=== PATIENT | female | born 1985 | race Caucasian/White ===

== ENCOUNTER → 2022-06-21 | Outpatient (CLI) | payer MEDICAID | LOC: LABNPT 17:01 | PROVIDERS: ATTEND Obstetrics & Gynecology | DX: O13.9 Gestational [pregnancy-induced] hypertension without significant proteinuria, unspecified trimester (principal); Z3A.00 Weeks of gestation of pregnancy not specified | CPT/HCPCS: 82570; 84156 ==

== ENCOUNTER 2022-06-29 12:46 | Outpatient (CLI) | payer MEDICAID ==
[~2022-06-29] VITALS: Ht 162.6 cm; Wt 79.2 kg
[2022-06-29] MEDS ORDERED: D5 LR IV SOLUTION 1,000 ML IV SCH (13:15)
[2022-06-29 13:21] LABS: CLARITY,URINE CLEAR; COLOR,URINE YELLOW; GLUCOSE, URINE (UA) NEGATIVE (NEGATIVE); KETONES,URINE 2+ (NEGATIVE); LEUKOCYTE ESTERASE ,URINE TRACE (NEGATIVE); NITRITE,URINE NEGATIVE (NEGATIVE); PROTEIN,URINE NEGATIVE (NEGATIVE)
[2022-06-29 13:27] VITALS: BP 138/70
[2022-06-29 13:33] LABS: AMORPHOUS SEDIMENT,UR FEW AMOR URATES /LPF; BACTERIA,URINE FEW /HPF; BILIRUBIN,URINE 2+ (NEGATIVE)
--- NOTE | 2022-06-30 08:44 | Physician Query-Final Dx ---
TANYA,06/30/22 0844: Clinic Account Progress/Dx Physician Query: Please give diagnosis Please include # weeks gestation Date of Service Jun 29, 2022 at 12:46 MAYURI RANDHAWA MD 06/30/22 1105: Clinic Account Progress/Dx DIAGNOSIS: Diagnosis 36 weeks gestation with false labor ,NovJun 30, 2022 08:44 MAYURI RANDHAWA MD Jun 30, 2022 11:05
== END 2022-06-29 16:14 | disposition home or self-care (01) ==
LOC: WSo 12:46 → LDRP 12:47 → WSo 16:14
PROVIDERS: ATTEND Obstetrics & Gynecology
DX: O47.03 False labor before 37 completed weeks of gestation, third trimester (principal); Z3A.36 36 weeks gestation of pregnancy
CPT/HCPCS: 81000; 87077; 87088

== ENCOUNTER 2022-07-02 01:31 | Inpatient (IN) | payer MEDICAID ==
[2022-07-02] VITALS (46 sets, daily range): BP systolic 106–150; BP diastolic 56–96
[~2022-07-02] VITALS: Ht 162.6 cm; Wt 79.8 kg
[2022-07-02] MEDS ORDERED: AMPICILLIN FOR IV USE 2,000 MG in WATER (STERILE) FOR INJECTION 14.8 ML IV ONE (07:00)
--- NOTE | 2022-07-02 07:03 | History & Physical ---
History and Physical Date Seen by Provider: Jul 02, 2022 Time Seen by Provider: 07:02 This patient is a 37-year-old female currently at 37 weeks gestation admitted for labor induction due to PIH. Patient has had some significant elevation pressures throughout the . Episodically pressures have improved. Patient has had evaluations for preeclampsia that have not reached the threshold for diagnosis to date. She denies rupture membranes or bleeding. She has no other problems with the . She did have a positive group B strep culture after 35 weeks gestation. Allergies are to dexamethasone doxycycline and rifampin Medications are vitamins Medical social and surgical histories are per the antepartum record HEENT exam is normal Neck is supple no lymphadenopathy no thyromegaly Abdomen is gravid soft nontender nondistended Extremities show no clubbing or cyanosis. There is no Homans' sign. Pelvic exam is pending Assessment and plan 37+ weeks gestation with PIH admitted for induction of labor. We anticipate a vaginal delivery 37 weeks gestation with PIH Allergies and Home Medications Allergies Coded Allergies: dexamethasone (Unverified Allergy, Unknown, 06/29/22) doxycycline (Unverified Allergy, Unknown, 06/29/22) rifampin (Unverified Allergy, Unknown, 06/29/22) Patient Home Medication List Home Medication List Reviewed: Yes Docusate Sodium (Docusate Sodium) 100 Mg Capsule, 100 MG PO BID Prescribed by: MAYURI DACOSTA on 07/03/22 0803 Ibuprofen (Ibuprofen) 800 Mg Tablet, 800 MG PO Q6H Prescribed by: MAYURI DACOSTA on 07/03/22 0803 Oxycodone HCl/Acetaminophen (Percocet 5-325 mg Tablet) 5 Mg-325 Mg Tablet, 1 TAB PO Q4H PRN for PAIN-MODERATE Prescribed by: MAYURI DACOSTA on 07/03/22 0804 Tizanidine HCl (Tizanidine HCl) 4 Mg Tablet, 4 MG PO Q8H Prescribed by: MAYURI DACOSTA on 07/03/22 0803 MAYURI RANDHAWA MD Jul 02, 2022 07:03
--- NOTE | 2022-07-02 07:05 | Discharge Inst-Surgical ---
Discharge Inst-Surgical Depart Medication/Instructions New, Converted or Re-Newed RX: Transmitted to Pharmacy Consults/Follow Up Patient Instructions: As directed Orders & Referrals Follow Up Appt: Call to make follow up appt. for patient in 4 weeks. Activity Per routine post vaginal delivery instructions. Diet as tolerated Patient may shower or tub bathe as desired. Activity Activity as Tolerated: No Diet Discharge Diet: No Restrictions MAYURI RANDHAWA MD Jul 02, 2022 07:05
[2022-07-02] MEDS: D5 LR IV SOLUTION 1,000 ML IV SCH ×2 (07:37→15:25)
[2022-07-02 07:59] LABS: BASOPHILS % (AUTO) 0 % (0-10); EOSINOPHILS # (AUTO) 0.1 10^3/uL (0.0-0.3); EOSINOPHILS % (AUTO) 1 % (0-10); HEMATOCRIT 40 % (35-52); HEMOGLOBIN 13.7 g/dL (11.5-16.0); LYMPHOCYTES % (AUTO) 18 % (12-44); MEAN CORPUSCULAR HEMOGLOBIN 33 pg (25-34); MEAN CORPUSCULAR HGB CONC 35 g/dL (32-36); MEAN CORPUSCULAR VOLUME 95 fL (80-99); MEAN PLATELET VOLUME 9.2 fL (9.0-12.2); MONOCYTES # (AUTO) 0.8 10^3/uL (0.0-1.0); MONOCYTES % (AUTO) 8 % (0-12); NEUTROPHILS # (AUTO) 7.7 10^3/uL (1.8-7.8); NEUTROPHILS % (AUTO) 72 % (42-75); PLATELET COUNT 220 10^3/uL (130-400); WHITE BLOOD COUNT 10.6 10^3/uL (4.3-11.0)
[2022-07-02] MEDS ORDERED: ACETAMINOPHEN 500 MG TAB (TYLENOL) PO PRN (08:00)
[2022-07-02] MEDS: LACTATED RINGERS 1,000 ML IV SCH ×2 (08:36→11:20)
[2022-07-02] MEDS ORDERED: fentaNYL INJ 100 MCG/2 ML AMP ONE ×2 (10:40→17:47)
[2022-07-02] MEDS ORDERED: BUPIVACAINE 0.25% 30 ML (SENSORCAINE) VIAL ONE (10:40)
[2022-07-02] MEDS ORDERED: fentaNYL 2 mcg/ml BUPIVA 0.125 100 ML ONE (10:41)
[2022-07-02] MEDS ORDERED: OXYTOCIN PRE-MIX DRIP 500 ML IV ONE (10:47)
[2022-07-02] MEDS: AMPICILLIN FOR IV USE 1,000 MG in WATER (STERILE) FOR INJECTION 7.4 ML IV SCH ×2 (10:55→15:25)
[2022-07-02] MEDS ORDERED: OXYTOCIN PRE-MIX DRIP 500 ML IV SCH ×2 (11:00→18:00)
[2022-07-02] MEDS ORDERED: LACTATED RINGERS 1,000 ML IV ONE (11:20)
[2022-07-02] MEDS ORDERED: ONDANSETRON 4 MG/2 ML (SDV) Z0FRAN ONE (11:20)
[2022-07-02] MEDS ORDERED: ONDANSETRON 4 MG/2 ML (SDV) Z0FRAN IV PRN (14:30)
[2022-07-02] MEDS ORDERED: NALOXONE 0.4 MG/ML 1 ML (NARCAN) VIAL IV PRN ×2 (14:30)
[2022-07-02] MEDS ORDERED: diphenhydrAMINE 50 MG/ML INJ (BENADRYL) IV PRN (14:30)
[2022-07-02] MEDS ORDERED: fentaNYL 2 mcg/ml BUPIVA 0.125 100 ML EPI SCH (14:30)
[2022-07-02] MEDS ORDERED: METOCLOPRAMIDE INJ 10 MG/2 ML (REGLAN) IV PRN (14:30)
[2022-07-02] MEDS ORDERED: LIDOCAINE/EPI 2% 1:200,00 (XYLOCAINE) 10 ML VIAL ONE ×2 (17:24→17:43)
[2022-07-02] MEDS ORDERED: fentaNYL INJ 100 MCG/2 ML AMP IVP ONE (17:47)
[2022-07-02] MEDS ORDERED: ONDANSETRON 4 MG/2 ML (SDV) Z0FRAN IVP PRN (18:00)
[2022-07-02] MEDS ORDERED: TETANUS,DIPTH,PERTUSS P/F (BOOSTRIX) 0.5 ML VIAL IM ONE (18:00)
[2022-07-02] MEDS ORDERED: BENZOCAINE/MENTHOL (DERMOPLAST) 56 ML CAN TP PRN (18:00)
[2022-07-02] MEDS: ACETAMINOPHEN 500 MG TAB (TYLENOL) PO SCH (18:39)
[2022-07-02] MEDS: KETOROLAC 30 MG/ML VIAL IV SCH (18:39)
[2022-07-02] MEDS ORDERED: LIDOCAINE/EPI 2% 1:100,00 (XYLOCAINE) 20 ML VIAL INJ ONE (21:00)
[2022-07-02] MEDS ORDERED: DOCUSATE SODIUM 100 MG (COLACE) CAP PO ONE (21:20)
[2022-07-02] MEDS: DOCUSATE SODIUM 100 MG (COLACE) CAP PO SCH (21:23)
[2022-07-03] MEDS: ACETAMINOPHEN 500 MG TAB (TYLENOL) PO SCH ×4 (00:10→17:00)
[2022-07-03] MEDS: KETOROLAC 30 MG/ML VIAL IV SCH (00:10)
[2022-07-03 00:15] VITALS: BP 135/71
[2022-07-03 04:25] VITALS: BP 116/57
--- NOTE | 2022-07-03 06:04 | OPERATIVE REPORT ---
DATE OF SERVICE: 07/02/2022 DELIVERY NOTE The patient delivered by term operative vaginal delivery, a viable male with Apgars of 8 and 9 at 1 and 5 minutes respectively, weight 6 pounds and 14 ounces. Cord blood pH of 7.24. Hancock forceps were applied at the +2 to +3 station due to decreased heart rate and ineffective maternal expulsive effort. Pudendal block was initially placed and then Hancock forceps were applied, and with the next single contraction, the patient pushed 1 time and delivered the baby over a midline episiotomy that was performed to shorten the second stage of labor. The was bulb suctioned on delivery of the head again on completion of delivery. Umbilical cord was doubly clamped, father cut the cord, the baby was passed to mom's abdomen. Cord bloods were obtained. The placenta delivered spontaneously . It was normal with a 3-vessel cord. The cervix, vagina, rectum, and perineum were examined and found intact, except for the midline episiotomy, which was repaired with a single suture of 3-0 Vicryl Rapide in the usual manner to good hemostasis and good reapproximation. The repair was augmented with local analgesia using 1% lidocaine with epinephrine and infiltrated into the perineal body. Sponge and needle counts were correct on completion of delivery and the repair. Blood loss was around 150 mL. The patient tolerated the delivery and the repair well and stayed in the LDR for recovery. The baby remained with the mom. Job ID: [id number] DocumentID: [id number] Dictated Date: 07/02/2022 19:01:44 Metal Machine Operator Date: 07/03/2022 05:15:30 Dictated By: MAYURI RANDHAWA MD
[2022-07-03] MEDS: IBUPROFEN 800 MG (MOTRIN) TAB PO SCH ×2 (06:37→12:10)
--- NOTE | 2022-07-03 07:55 | Progress Note ---
Standard Progress Note Progress Notes/Assess & Plan Date Seen by a Provider: Jul 03, 2022 Time Seen by a Provider: 07:54 Progress/Assessment & Plan This patient is without complaint. She is ambulating, voiding, tolerating oral intake well and has good pain control. Patient is requesting discharge home. Vital Signs Date Time Temp Pulse Resp B/P (MAP) Pulse Ox O2 Delivery O2 Flow Rate FiO2 07/03/22 04:25 36.4 69 16 116/57 (76) 98 Room Air 07/03/22 00:15 36.5 70 16 135/71 (92) 97 Room Air 07/02/22 20:26 36.6 73 16 125/70 (88) Room Air 07/02/22 20:10 88 16 131/71 (91) Room Air 07/02/22 20:00 75 16 132/72 (92) Room Air 07/02/22 19:40 36.5 82 16 136/72 (93) Room Air 07/02/22 19:30 75 16 123/65 (84) Room Air 07/02/22 19:15 87 16 126/59 (81) Room Air 07/02/22 19:00 79 18 123/60 (81) Room Air 07/02/22 18:45 86 18 133/61 (85) Room Air 07/02/22 18:30 89 18 130/56 (80) Room Air 07/02/22 18:15 93 18 142/66 (91) Room Air 07/02/22 18:00 100 18 146/65 (92) Room Air 07/02/22 17:45 37.3 103 18 150/70 (96) Room Air 07/02/22 17:30 18 Room Air 07/02/22 17:15 18 Room Air 07/02/22 17:00 18 Room Air 07/02/22 16:45 18 Room Air 07/02/22 16:30 18 Room Air 07/02/22 16:15 18 Room Air 07/02/22 16:00 70 18 122/71 (88) Room Air 07/02/22 15:45 78 18 125/75 (92) Room Air 07/02/22 15:30 80 18 126/64 (84) 99 Room Air 07/02/22 15:20 37.3 07/02/22 15:15 74 18 119/72 (88) 99 Room Air 07/02/22 15:00 75 18 123/58 (79) 98 Room Air 07/02/22 14:45 66 18 114/62 (79) 97 Room Air 07/02/22 14:30 90 18 119/57 (77) 97 Room Air 07/02/22 14:15 74 18 121/56 (77) 96 Room Air 07/02/22 14:00 76 18 116/60 (78) 98 Room Air 07/02/22 13:45 73 18 106/61 (76) 99 Room Air 07/02/22 13:30 76 18 119/64 (82) 99 Room Air 07/02/22 13:15 76 18 119/64 (82) 99 Room Air 07/02/22 13:00 74 18 126/71 (89) 99 Room Air 07/02/22 12:45 70 18 122/68 (86) 99 Room Air 07/02/22 12:30 83 18 134/65 (88) 98 Room Air 07/02/22 12:15 85 18 126/65 (85) 99 Room Air 07/02/22 12:00 76 18 124/68 (86) 97 Room Air 07/02/22 11:45 70 18 129/64 (85) 97 Room Air 07/02/22 11:30 109 18 128/75 (92) 97 Room Air 07/02/22 11:25 83 18 128/64 (85) 98 Room Air 07/02/22 11:20 94 18 128/64 (85) 98 Room Air 07/02/22 11:15 109 18 128/75 (92) 97 Room Air 07/02/22 11:10 93 18 137/80 (99) 98 Room Air 07/02/22 11:05 36.7 85 18 128/87 (101) 98 Room Air 07/02/22 11:00 81 18 146/86 (106) 99 Room Air 07/02/22 10:55 88 18 146/83 (104) 97 Room Air 07/02/22 10:50 81 18 131/79 (96) 98 Room Air 07/02/22 10:30 74 18 124/65 (84) Room Air 07/02/22 10:00 18 Room Air 07/02/22 09:30 75 18 127/96 (106) Room Air 07/02/22 09:00 73 18 128/67 (87) Room Air 07/02/22 08:30 18 Room Air 07/02/22 08:15 76 18 122/62 (82) Room Air 07/02/22 08:00 36.3 85 18 123/77 (92) Room Air I & O 07/03/22 06:59 Intake Total 2644.4 ml Balance 2644.4 ml Vital signs are stable. Patient is afebrile. Fundus is firm below the umbilicus and nontender. Extremities show no clubbing or cyanosis. There is no Homans' sign. Pelvic exam is deferred Assessment and plan day #1 status post operative vaginal delivery at 37 weeks. Patient is doing well and can be discharged home today or tomorrow depending on when baby is discharged Final Diagnosis 37-week operative vaginal delivery MAYURI RANDHAWA MD Jul 03, 2022 07:55
[2022-07-03] MEDS ORDERED: TIZA-186 PO (08:03)
[2022-07-03] MEDS ORDERED: OXYC-199 PO (08:03)
[2022-07-03] MEDS ORDERED: IBUP-1780 PO (08:03)
[2022-07-03] MEDS ORDERED: DOCU100C37 PO (08:03)
[2022-07-03 08:40] VITALS: BP 128/66
[2022-07-03] MEDS: DOCUSATE SODIUM 100 MG (COLACE) CAP PO SCH (08:49)
[2022-07-03 12:12] VITALS: BP 129/60
--- NOTE | 2022-07-03 12:56 | Anesthesia-Regional Post-Op ---
Regional Patient Condition Mental Status: Alert, Oriented x3 Circulation: Same as Pre-Op Headache: Absent Sensation: Full Recovery Motor Block: Absent Post Op Complications Complications None Follow Up Care/Instructions Patient Instructions None needed. Anesthesia/Patient Condition Patient is doing well, no complaints, stable vital signs, no apparent adverse anesthesia problems. No complications reported per nursing. SPIKE RAMEY CRNA Jul 03, 2022 12:56
[2022-07-03 16:21] VITALS: BP 124/78
[2022-07-03] MEDS ORDERED: IBUPROFEN 800 MG (MOTRIN) TAB PO SCH (18:00)
[2022-07-03 19:45] VITALS: BP 138/81
== END 2022-07-03 20:15 | disposition home or self-care (01) | DRG 807 ==
LOC: LDRP 06:53
PROVIDERS: ADMIT Obstetrics & Gynecology; ATTEND Obstetrics & Gynecology
PROC: 10D07Z3 Extraction of Products of Conception, Low Forceps, Via Natural or Artificial Opening (ICD-10-PCS; principal; 2022-07-02)
PROC: 0W8NXZZ Division of Female Perineum, External Approach (ICD-10-PCS; 2022-07-02)
PROC: 3E033VJ Introduction of Other Hormone into Peripheral Vein, Percutaneous Approach (ICD-10-PCS; 2022-07-02)
DX: O13.4 Gestational [pregnancy-induced] hypertension without significant proteinuria, complicating childbirth (principal); Z37.0 Single live birth; Z3A.37 37 weeks gestation of pregnancy; O76 Abnormality in fetal heart rate and rhythm complicating labor and delivery; O62.2 Other uterine inertia; O99.824 Streptococcus B carrier state complicating childbirth; O99.334 Smoking (tobacco) complicating childbirth; F17.210 Nicotine dependence, cigarettes, uncomplicated
CPT/HCPCS: 36415; 85025; 86850; 86900; 86901